=== PATIENT | male | born 1990 | race African-American/Black ===

== ENCOUNTER 2020-12-16 21:07 | Emergency (ER) | payer MEDICARE ==
[~2020-12-16 21:07] MED LIST: CLEOCIN HCL300 MG PO; IBUPROFEN600 MG PO
== END 2020-12-17 02:16 | disposition left against medical advice (07) ==
LOC: ER1 21:07
DX: L02.424 Furuncle of left upper limb (principal); R22.0 Localized swelling, mass and lump, head; Z53.21 Procedure and treatment not carried out due to patient leaving prior to being seen by health care provider